=== PATIENT | male | born 1960 | race African-American/Black ===

== ENCOUNTER 2016-05-10 16:15 | Emergency (ER) | payer OTHER ==
[~2016-05-10] VITALS: Ht 188 cm; Wt 81.6 kg
[2016-05-10 16:21] VITALS: BP 125/80
[2016-05-10] MEDS ORDERED: Bacitracin Oint UD TOPIC ONE (16:30)
[2016-05-10] MEDS ORDERED: TdaP Vaccine 0.5ml Syr IM ONE (16:30)
[2016-05-10] MEDS ORDERED: Lidocaine 1% Plain 30 ml INJ ONE (16:30)
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
== END 2016-05-10 17:08 | disposition home or self-care (01) ==
LOC: EDBD 16:15 → EMR 16:40
DX: S50.812A Abrasion of left forearm, initial encounter (principal); S50.811A Abrasion of right forearm, initial encounter; S80.812A Abrasion, left lower leg, initial encounter; S80.811A Abrasion, right lower leg, initial encounter; S61.412A Laceration without foreign body of left hand, initial encounter; S30.0XXA Contusion of lower back and pelvis, initial encounter; Y35.391A Legal intervention involving other blunt objects, law enforcement official injured, initial encounter; Y92.89 Other specified places as the place of occurrence of the external cause; I10 Essential (primary) hypertension; Z23 Encounter for immunization
CPT/HCPCS: 90471; 90715; 96372; 99283; J2001